=== PATIENT | female | born 1960 | race Caucasian/White ===

== ENCOUNTER → 2016-09-11 | Outpatient (CLI) | payer OTHER ==
[~2016-09-11] MED LIST: ACETAMINOPHEN500 M3 PO; ALEVE220 M1 PO; ALLERGY RELIEF180 MG PO; CAFFEINE; EQUATE HEADACHE; FISH OIL 1,0001 EAC2 PO; PERCOCET5/325 PO; PRILOSEC PO
--- NOTE | ~2016-09-11 | CT2 ---
[facility] A Service [facility] RADIOLOGY TEXT RESULTS PATIENT: DONYA PEREZ LOCATION: [facility] : 62 UNIT #: [id number] AGE: [address]: Luz Adler MD SEX: F ORDER DR: [id number] [facility] [address] [place], [place] [address] [id number] MR#: [id number] Acc #: [id number] NAME: DONYA PEREZ : 1960 SEX: F STUDY DATE/TIME: 09/11/2016 14:00 UNIT: [facility] ROOM: STUDY DESCRIPTION: CT Abd and Pelv W Cont Attending Physician: Luz Adler M.D. Referring Physician: Luz Adler M.D. Ordering Physician: Luz Adler M.D. Primary Care Physician: Luz Adler M.D. MEDICAL IMAGING REPORT This report is preliminary unless electronic signature is present EXAM CT abdomen and pelvis with contrast INDICATION Right upper quadrant abdominal pain for the past 8 years. PROCEDURE Contrast-enhanced CT of the abdomen and pelvis. 100 mL of Isovue-370. COMPARISON None TECHNIQUE This CT exam was performed with one or more of the following radiation dose reduction techniques: automatic exposure control, adjustment of mA and/or kV according to patient size, and iterative reconstruction. FINDINGS ABDOMEN WITH CONTRAST: 6.0 mm noncalcified nodule in the left lung base. 5.0 mm noncalcified nodule posterior left lower lobe. The liver, spleen, kidneys, adrenal glands, pancreas, gallbladder and bowel loops are nondilated. Appendix normal. PELVIS WITH CONTRAST: Previous hysterectomy. No pelvic mass or fluid. No aggressive appearing bone lesion. IMPRESSION No acute findings in the abdomen or pelvis. No specific finding to explain the patient's abdominal pain. Dictated by... Cosmo Lebron M.D. [facility] A Service of [facility] RADIOLOGY TEXT RESULTS PATIENT: DONYA PEREZ [facility] UNIT #: [id number] AGE: [address]: Luz Adler MD SEX: F ORDER DR: THIS IS AN ELECTRONICALLY VERIFIED REPORT Cosmo Lebron M.D. at 09/13/2016 7:53 AM Sidney TD: 09/12/2016 11:23 JOB #: [id number] MEDICAL IMAGING REPORT COPY
== END | disposition home or self-care (01) ==
LOC: CCAT 12:21
DX: R10.11 Right upper quadrant pain (principal)
CPT/HCPCS: 74177; Q9967